=== PATIENT | female | born 1960 | race Hispanic/Latino ===

== ENCOUNTER 2018-01-01 15:48 | Observation (INO) | payer OTHER ==
[~2018-01-01] VITALS: Ht 157.5 cm; Wt 54.0 kg
[2018-01-01] MEDS ORDERED: ALBUTEROL SULF 0.083% NEB SOLN 3 ML NEB NEB STA (16:48)
[2018-01-01] MEDS ORDERED: IPRATROPIUM BROMIDE 0.02% 2.5 ML NEB NEB STA (16:48)
[2018-01-01] MEDS ORDERED: ASPIRIN 81 MG CHEW TAB PO ONE ×2 (17:00→23:45)
[2018-01-01 17:49] LABS: CLARITY,URINE HAZY (CLEAR); COLOR,URINE YELLOW (YELLOW)
[2018-01-01 17:50] LABS: BILIRUBIN,URINE NEGATIVE (NEGATIVE); KETONES,URINE NEGATIVE (NEGATIVE); LEUKOCYTE ESTERASE ,URINE 1+ (NEGATIVE); NITRITE,URINE NEGATIVE (NEGATIVE); PROTEIN,URINE DIPSTICK NEGATIVE (NEGATIVE); URINE UROBILINOGEN 0.2 mg/dL (0.2 - 1)
--- NOTE | 2018-01-01 18:03 | Diagnostic Imaging Report ---
PROCEDURE: Frontal and lateral views of the chest. COMPARISON: None. INDICATIONS: SOB FINDINGS: Lines/tubes: None. Lungs: The lungs are well inflated and clear. There is no evidence of pneumonia or pulmonary edema. Pleura: There is no pleural effusion or pneumothorax. Heart and mediastinum: The heart and the mediastinum are normal. Bones: No acute bony abnormality. IMPRESSION: No acute cardiopulmonary disease. Dictated by: Pietro Ramon M.D. on 01/01/2018 at 18:06 Electronically approved by: Pietro Ramon M.D. on 01/01/2018 at 18:06
[2018-01-01 18:12] LABS: BACTERIA,URINE RARE /HPF; EPITHELIAL CELLS,URINE RARE /LPF; MUCUS,URINE FEW (RARE); RBC,URINE 0-5 /HPF (0-5)
[2018-01-01 21:02] LABS: BASOPHILS % 0.6 % (0.0-1.0); EOSINOPHILS % 0.6 % (0.0-6.0); HEMATOCRIT 40.1 % (34.2-44.1); HEMOGLOBIN 13.7 g/dL (12.0-16.0); LYMPHOCYTES # (AUTO) 1.6 (1.0-3.2); LYMPHOCYTES % 29.8 % (18.0-39.1); MEAN CORPUSCULAR HEMOGLOBIN 31.6 pg (28-32); MEAN CORPUSCULAR HGB CONC 34.2 g/dL (31-35); MEAN CORPUSCULAR VOLUME 92.6 fL (81-99); MONOCYTES # (AUTO) 0.4 (0.2-0.8); MONOCYTES % 8.2 % (4.4-11.3); NEUTROPHILS # (AUTO) 3.2 (2.1-6.9); NEUTROPHILS % 60.6 % (38.7-80.0); PLATELET COUNT 261 x10e3/uL (140-360); RED BLOOD COUNT 4.33 x10e6/uL (3.6-5.1); RED CELL DISTRIBUTION WIDTH 12.6 % (11.7-14.4)
[2018-01-01 21:14] LABS: INR 0.99; PARTIAL THROMBOPLASTIN TIME 26.9 seconds (23.8-35.5); PROTHROMBIN TIME 12.3 seconds (11.9-14.5)
[2018-01-01 21:24] LABS: ALANINE AMINOTRANSFERASE 41 IU/L (0-55); ALBUMIN 3.9 g/dL (3.5-5.0); ALBUMIN/GLOBULIN RATIO 1.1 (0.8-2.0); ALKALINE PHOSPHATASE 102 IU/L (40-150); AMYLASE 87 U/L (25-125); ANION GAP 12.8 mmol/L (8-16); BLOOD UREA NITROGEN 12 mg/dL (7-26); BUN/CREATININE RATIO 17 (6-25); CALCIUM 9.8 mg/dL (8.4-10.2); CARBON DIOXIDE 26 mmol/L (22-29); CHLORIDE 106 mmol/L (98-107); CREATINE KINASE 4168 IU/L (29-168); CREATININE, SERUM 0.72 mg/dL (0.57-1.11); EST GLOMERULAR FILTRATION RATE > 60 ML/MIN (60-); GLUCOSE 109 mg/dL (74-118); LIPASE 16 U/L (8-78); POTASSIUM 3.8 mmol/L (3.5-5.1); SODIUM 141 mmol/L (136-145)
[2018-01-01 21:44] LABS: THYROID STIMULATING HORMONE 0.347 uIU/mL (0.350-4.940)
[2018-01-01] MEDS ORDERED: ONDANSETRON HCL INJ 2 MG/ML VIAL IV PRN (23:45)
--- NOTE | 2018-01-02 00:45 | Diagnostic Imaging Report ---
EXAM: CT CHEST W DATE: 01/01/2018 11:06 PM INDICATION: Shortness of breath COMPARISON: None TECHNIQUE: Multidetector CT scanning of the chest was performed. Coronal and sagittal multiplanar reformations were obtained. IV Contrast: 100 ml Isovue 370/300 FINDINGS: LUNGS AND PLEURA: 4 mm right upper lobe subpleural nodule. There is a significant post void volume loss with a Downey is a 0. No consolidations or edema. No effusions or pneumothorax. HEART, MEDIASTINUM, VESSELS: No evidence of acute pulmonary artery embolism. Main pulmonary artery is normal in caliber, 2.6 cm Normal heart size. No pericardial effusion. No adenopathy. UPPER ABDOMEN: Subcentimeter low-density lesion at the liver dome, likely a cyst.. MUSCULOSKELETAL: No acute findings. Bilateral breast implants are noted. IMPRESSION: 1. No evidence of pulmonary embolism or other acute abnormality. 2. Nonspecific 4 mm right upper lobe subpleural nodule. Consider 12 month follow-up CT if at high risk for lung cancer. Otherwise no follow-up necessary. Signed by: Dr Cheryle Valentin MD on 01/02/2018 12:42 AM
[2018-01-02] MEDS: SODIUM CHLORIDE 0.9% 1000ML 1,000 ML IV SCH ×3 (02:06→16:20)
[2018-01-02 02:35] LABS: CREATINE KINASE 3767 IU/L (29-168)
[2018-01-02] MEDS ORDERED: IOPAMIDOL 370 MG/ML 200 ML INFUS..BTL INJ ONE (03:23)
[2018-01-02] MEDS ORDERED: SODIUM CHLORIDE 0.9% 50ML 50 ML ONE (03:23)
[2018-01-02] MEDS ORDERED: TRAZODONE HCL50 MG PO (06:51)
[2018-01-02] MEDS ORDERED: ALBUTEROL SULF 0.083% NEB SOLN 3 ML NEB NEB STA (09:24)
[2018-01-02] MEDS ORDERED: IPRATROPIUM BROMIDE 0.02% 2.5 ML NEB NEB ONE (09:30)
[2018-01-02 10:14] LABS: CREATINE KINASE 2817 IU/L (29-168)
--- NOTE | 2018-01-02 10:45 | History and Physical ---
CLINICAL HISTORY: This is a 57-year-old white woman seen in the emergency room at [facility] because of shortness of breath without chest pains, and rhabdomyolysis following workout. This patient had episode of severe shortness of breath 4 months ago, although she has no history of asthma or childhood asthma, she attributed the episode to asthma. She took her son's old asthma medication (inhaler) and felt better after an hour. She did not go to the emergency room. She had been doing CrossFit for approximately 2 months, and on the day of admission, she felt sluggish, short of breath, went to see Dr. Leonard, who was out of town. Dr. Kowalski had recommended she come to the emergency room where she was evaluated, her CK was over 4000. CT scan of the chest was negative. Chest x-ray was negative. There was, however, 4 mm right upper lobe pleural nodule. She has 6 to 10 WBCs in urine, but rare bacteria. She had no fever. White count was 5200. Renal functions were normal. Liver functions were unremarkable. TSH was low. She is being admitted for intravenous fluids and for oxygen since she is still complaining of shortness of breath. PAST MEDICAL HISTORY: Remarkable for absence of illnesses. She has no previous surgeries. FAMILY HISTORY: Brother from myocardial infarction at age 44. Mother had COPD and continues to smoke. Father from motor vehicle accident when the patient was 15. Son had asthma, but that resolved. PERSONAL AND SOCIAL HISTORY: She drinks occasionally. Denies smoking. She is an grades 1 thru 6 home teacher. REVIEW OF SYSTEMS: Noncontributory. PHYSICAL EXAMINATION: GENERAL: She is alert, coherent, appears to be comfortable. She has oxygen mask on. CARDIAC: Jugular veins were not distended. S1 and S2 were regular. There were no appreciable murmurs. LUNGS: Clear. ABDOMEN: Soft. Bowel sounds are present. EXTREMITIES: Showed no cyanosis, clubbing, edema. LABORATORY STUDIES: I mentioned. IMPRESSION: 1. Shortness of breath, possibly related to anxiety with left ventricular dysfunction to be considered. 2. A 4 mm right upper lobe pleural-based nodule of undetermined etiology or significance. 3. Rhabdomyolysis from doing workouts. 4. White cells in the urine, but no clinical urinary tract infection. 5. Decreased thyroid-stimulating hormone, ruled out occult hyperthyroidism. RECOMMENDATIONS: Free T3, T4. Echocardiogram. Intravenous fluids for rhabdomyolysis. Monitoring CK and renal function. Job#: [id number] cc:GEOVANNY LEONARD MD
[2018-01-02 12:19] LABS: ABG HCO3 24 mmol/L (23-28); ABG PCO2 37 mmHg (41-51); ABG PH 7.43 (7.31-7.41); ABG PO2 99 mmHg (80-105)
[2018-01-02] MEDS ORDERED: ACETAMINOPHEN 325 MG TAB PO PRN (14:00)
[2018-01-02 15:58] VITALS: BP 137/76
[2018-01-02 16:32] VITALS: BP 137/76
[2018-01-02 18:53] LABS: CREATINE KINASE MB 1.7 ng/mL (0-5.0)
[2018-01-02 20:00] VITALS: BP 133/78
[2018-01-02] MEDS ORDERED: TRAZODONE HCL 50 MG TAB PO PRN (21:00)
[2018-01-03] VITALS: BP 138/76
[2018-01-03] MEDS: SODIUM CHLORIDE 0.9% 1000ML 1,000 ML IV SCH ×2 (02:21→07:38)
[2018-01-03 04:00] VITALS: BP 115/70
[2018-01-03 06:39] LABS: CREATINE KINASE 1379 IU/L (29-168)
[2018-01-03 07:48] VITALS: BP 115/70
[2018-01-03 08:07] VITALS: BP 121/61
[2018-01-03] MEDS ORDERED: XANAX0.25 MG PO (10:44)
[2018-01-03 11:51] LABS: ANION GAP 11.1 mmol/L (8-16); BLOOD UREA NITROGEN 9 mg/dL (7-26); BUN/CREATININE RATIO 13 (6-25); CALCIUM 9.2 mg/dL (8.4-10.2); CARBON DIOXIDE 26 mmol/L (22-29); CHLORIDE 106 mmol/L (98-107); CREATININE, SERUM 0.68 mg/dL (0.57-1.11); EST GLOMERULAR FILTRATION RATE > 60 ML/MIN (60-); GLUCOSE 106 mg/dL (74-118); POTASSIUM 4.1 mmol/L (3.5-5.1); SODIUM 139 mmol/L (136-145)
[2018-01-03 12:04] VITALS: BP 138/86
--- NOTE | 2018-01-03 13:50 | Discharge Summary ---
CLINICAL HISTORY: This is a 57-year-old white woman admitted via the emergency room because of persistent severe shortness of breath despite negative workup and because of rhabdomyolysis due to exercising with CK over 4000. Please refer my previous dictation concerning details of current illness, past medical history, personal and social history, family history, review of systems, physical examination, and initial laboratory studies. HOSPITAL COURSE: The patient's workup included a TSH which was slightly low. Subsequent free T4 and free T3 were normal. Electrolytes were satisfactory. BUN and creatinine were satisfactory. CK gradually declined with intravenous fluids from 4100 to 1300. Arterial blood gas showed pH 7.43, pCO2 37, pO2 of 99 on room air. CBC were satisfactory. The patient was feeling better after a couple days of intravenous fluids, and was agreeable for discharge and to be followed on an outpatient basis. She will follow up with Dr. Geovanny Leonard in 1 week. DISCHARGE DIAGNOSES 1. Rhabdomyolysis from excessive exercising and with the patient cautioned not to do the same exercises. 2. Shortness of breath possibly related to anxiety with arterial blood gas satisfactory. Chest x-ray negative. Computerized tomography scan of the chest showing no evidence of pulmonary embolism. 3. Nonspecific 4 mm right upper pleural based nodule requiring further followup with primary care physician. 4. Leukorrhea with no clinical urinary tract infection. 5. Slightly diminished thyroid stimulating hormone with normal free T4 and free T3. SAUNDRA BARNARD MD Job#: [id number] [place] cc:GEOVANNY LEONARD MD
--- NOTE | 2018-01-03 15:47 | Cardiology Report ---
DATE OF STUDY: January 01, 2018 ECHOCARDIOGRAM M-MODE: Normal chamber and wall dimensions. Normal contractility. Normal mitral and aortic valves. No pericardial effusion. SECTOR SCAN: Normal chamber and wall dimensions. Normal contractility. Normal mitral and aortic valves. No pericardial effusion. CARDIAC DOPPLER STUDY WITH COLOR: Trace tricuspid regurgitation. CONCLUSIONS 1. Left ventricular ejection fraction is approximately 60%. 2. Trace tricuspid regurgitation, probably not clinically significant. Job#: [id number] cc:GEOVANNY LEONARD MD
== END 2018-01-03 13:21 | disposition home or self-care (01) ==
LOC: ER 15:48 → ERHOLD 01-02 03:31 → IMCU 01-02 15:44
PROVIDERS: ADMIT Internal Medicine Cardiovascular Disease; ATTEND Internal Medicine Cardiovascular Disease
DX: M62.82 Rhabdomyolysis (principal); R06.02 Shortness of breath; F41.9 Anxiety disorder, unspecified; J94.9 Pleural condition, unspecified; N89.8 Other specified noninflammatory disorders of vagina; R94.6 Abnormal results of thyroid function studies; X50.9XXA Other and unspecified overexertion or strenuous movements or postures, initial encounter; Y93.A5 Activity, obstacle course
CPT/HCPCS: 36415 ×3; 71045; 71046; 71260; 80048; 80053; 81001; 82150; 82550 ×3; 82553 ×3; 82805; 83690; 83880; 84439; 84443; 84481; 84484 ×3; 85025; 85379; 85610; 85730; 87086; 93005; 93306; 94640; 99284; G0378 ×2; J7030 ×2; Q9967; 36600

== ENCOUNTER → 2018-09-30 | Outpatient (CLI) | payer OTHER ==
[~2018-09-30] MED LIST: TRAZODONE HCL50 MG PO; XANAX0.25 MG PO
== END ==
LOC: MAMMO 15:42
PROVIDERS: ATTEND Family Medicine
DX: Z12.31 Encounter for screening mammogram for malignant neoplasm of breast (principal)
CPT/HCPCS: 77067

== ENCOUNTER → 2019-01-23 | Outpatient (CLI) | payer OTHER ==
--- NOTE | 2019-01-24 09:29 | Diagnostic Imaging Report ---
Exam: Bone mineral density study. History: Osteoporosis, screening Comparison: None available. Discussion: Evaluation of the left hip and lumbar spine was performed. The study is technically adequate. The patient's fracture risk is compared to an age-matched control. The patient denies prior surgery/fracture of the spine, hips or forearm. Left hip femoral neck bone mineral density: 0.7 g/cm2, T-score is -1.6, Z-score is -0.4. Left hip total bone mineral density: 0.8 g/cm2, T-score is -1.3, Z-score is -0.4. Lumbar spine total bone mineral density: 0.9 g/cm2, T-score is -1.7, Z-score is -0.4. Impression: Bone mineralization by WHO Classification is low bone mass/osteopenia, the fracture risk is increased. Signed by: Dr. Ben Cook D.O., M.M.M. on 01/24/2019 9:25 AM
--- NOTE | 2019-01-26 08:39 | Diagnostic Imaging Report ---
#[id number] - USBRECOMLT ULTRASOUND OF THE LEFT BREAST : 01/23/2019 Comparison is made to exam dated: 09/30/2018 mammogram - [facility]. Real-time ultrasound was performed of both breasts. Bilateral breast implants are intact. No significant masses, calcifications, or other findings are seen in either breast. IMPRESSION: NEGATIVE There is no sonographic evidence of malignancy. A 1 year screening mammogram is recommended. AMAURY AIKEN M.D. ct/:01/23/2019 14:34:40 Pasteurizer: BOY TAYLOR RDMS, [facility] letter sent: Normal Exam Ultrasound BI-RADS: 1 Negative
--- NOTE | 2019-01-26 08:40 | Diagnostic Imaging Report ---
#[id number] - USBRECOMRT ULTRASOUND OF THE RIGHT BREAST : 01/23/2019 Comparison is made to exam dated: 09/30/2018 mammogram - [facility]. Real-time ultrasound was performed of both breasts. Bilateral breast implants are intact. No significant masses, calcifications, or other findings are seen in either breast. IMPRESSION: NEGATIVE There is no sonographic evidence of malignancy. A 1 year screening mammogram is recommended. AMAURY AIKEN M.D. ct/:01/23/2019 14:35:22 Ditching Machine Operating Engineer: BOY TAYLOR RDMS, [facility] letter sent: Normal Exam Ultrasound BI-RADS: 1 Negative
== END ==
LOC: US 11:44
PROVIDERS: ATTEND Nurse Practitioner Women's Health
DX: R92.2 Inconclusive mammogram (principal); Z13.820 Encounter for screening for osteoporosis
CPT/HCPCS: 77080

== ENCOUNTER → 2022-12-28 | Outpatient (CLI) | payer OTHER | LOC: MAMMO 15:07 | PROVIDERS: ATTEND Family Medicine | DX: Z12.31 Encounter for screening mammogram for malignant neoplasm of breast (principal) | CPT/HCPCS: 77067 ==